=== PATIENT | male | born 1985 | race Caucasian/White ===

== ENCOUNTER 2017-10-07 10:58 | Emergency (ER) | payer OTHER ==
--- NOTE | 2017-10-07 11:09 | EDM.PDOC ---
ED HPI GENERAL MEDICAL PROBLEM - General Chief Complaint: Lower Extremity Injury/Pain Stated Complaint: LT ANKLE HURTS Time Seen by Provider: 10/07/17 11:01 Source of Information: Reports: Patient History Limitations: Reports: No Limitations - History of Present Illness INITIAL COMMENTS - FREE TEXT/NARRATIVE: HISTORY AND PHYSICAL: History of present illness: Patient is a 32-year-old male who presents to the emergency room today with complaints of left ankle/foot pain. He states yesterday he stepped in a hole and rolled his ankle and now has increased pain, swelling and discomfort with weightbearing/ambulating. He denies any numbness or tingling to the affected extremity. Denies any fever, chills, chest pain or shortness of breath. Denies any GI or symptoms. Review of systems: As per history of present illness and below otherwise all systems reviewed and negative. Past medical history: As per history of present illness and as reviewed below otherwise noncontributory. Surgical history: As per history of present illness and as reviewed below otherwise noncontributory. Social history: No reported history of drug or alcohol abuse. Family history: As per history of present illness and as reviewed below otherwise noncontributory. Physical exam: General: Well-developed and well-nourished 32-year-old male. Alert and oriented. Nontoxic appearing and in no acute distress. HEENT: Atraumatic, normocephalic, pupils equal and reactive bilaterally, negative for conjunctival pallor or scleral icterus, mucous membranes moist, throat clear, neck supple, nontender, trachea midline. No drooling or trismus noted. No meningeal signs Lungs: Clear to auscultation, breath sounds equal bilaterally, chest nontender. Heart: S1S2, regular rate and rhythm without overt murmur Abdomen: Soft, nondistended, nontender. Negative for masses or hepatosplenomegaly. Negative for costovertebral tenderness. Pelvis: Stable nontender. Genitourinary: Deferred. Rectal: Deferred. Skin: Superficial abrasion noted to the left lateral foot near the ankle. Otherwise skin is intact, warm, dry. No lesions or rashes noted. Extremities: Moves all extremities per self without difficulty or deficits. Does have tenderness to the left lateral mid foot with palpation. Good flexion and extension of the ankle. Strong pedal pulses bilaterally. CMS intact, negative for cords or calf pain. Neurovascular unremarkable. Neuro: Awake, alert, oriented. Cranial nerves II through XII unremarkable. Cerebellum unremarkable. Motor and sensory unremarkable throughout. Exam nonfocal. Notes: Radiology is reading as normal foot and ankle; does appear that there is a questionable hairline fracture which is correlated with tenderness with palpation. Placing the patient in a cam walker boot along with crutches. Prescription for Joes one to 2 tabs every 4-6 hours as needed, dispense 20, no refill. Encouraged him to follow-up with the automotive center manager in the next 1-2 days for further evaluation and management. He voices understanding and is agreeable to plan of care. He denies any further questions at this time. Diagnostics: Left foot and ankle x-ray Therapeutics: Ice, CAM walker boot, crutches, Joes Impression: Foot injury, left Plan: 1. Rest, ice, elevate the affected extremity. Use the CAM walker boot and crutches as we discussed. Non-weightbearing. 2. Tylenol and/or ibuprofen as needed for pain management. The Joes may cause drowsiness a do not take it will driving her needing to be functioning outside of the house. 3. Follow-up with the [facility] in the next 1-2 days. Return to the ED as needed and as discussed. Definitive disposition and diagnosis as appropriate pending reevaluation and review of above. Duration: Day(s): Location: Reports: Lower Extremity, Left left foot/ankle Pain Score (Numeric/FACES): 9 - Related Data Allergies Allergy/AdvReac Type Severity Reaction Status Date / Time No Known Allergies Allergy Verified 10/07/17 11:13 Home Meds: Home Meds . [No Known Home Meds] 10/07/17 [History] Review of Systems - Review of Systems Review Of Systems: ROS reveals no pertinent complaints other than HPI. ED EXAM, GENERAL - Physical Exam Exam: See Below Course - Vital Signs Last Recorded V/S: Last Vital Signs Temp 96.3 F 10/07/17 11:13 Pulse 95 10/07/17 11:50 Resp 18 10/07/17 11:50 BP 168/110 H 10/07/17 11:50 Pulse Ox 96 10/07/17 11:50 - Orders/Labs/Meds Orders: Active Orders 24 hr Category Date Time Status Ankle Min 3V Lt [CR] Stat Exams 10/07/17 11:00 Taken Foot 2V Lt [CR] Stat Exams 10/07/17 11:25 Ordered DME for Discharge [COMM] Stat Oth 10/07/17 11:35 Ordered Meds: Medications Discontinued Medications Generic Name Dose Route Start Last Admin Trade Name Rajani PRN Reason Stop Dose Admin Hydrocodone Bitart/Acetaminophen 2 tab 10/07/17 11:42 10/07/17 11:52 Joes 325-5 Mg PO 10/07/17 11:43 2 tab ONETIME ONE Administration Departure - Departure Time of Disposition: 11:45 Disposition: Home, Self-Care 01 Clinical Impression: Injury of left foot Qualifiers: Encounter type: initial encounter Qualified Code(s): S99.922A - Unspecified injury of left foot, initial encounter - Discharge Information Instructions: Tarsal Fracture Referrals: PCP,None [Primary Care Provider] - Forms: ED Department Discharge Additional Instructions: The following information is given to patients seen in the emergency department who are being discharged to home. This information is to outline your options for follow-up care. We provide all patients seen in our emergency department with a follow-up referral. The need for follow-up, as well as the timing and circumstances, are variable depending upon the specifics of your emergency department visit. If you don't have a primary care physician on staff, we will provide you with a referral. We always advise you to contact your personal physician following an emergency department visit to inform them of the circumstance of the visit and for follow-up with them and/or the need for any referrals to a consulting specialist. The emergency department will also refer you to a specialist when appropriate. This referral assures that you have the opportunity for follow-up care with a specialist. All of these measure are taken in an effort to provide you with optimal care, which includes your follow-up. Under all circumstances we always encourage you to contact your private physician who remains a resource for coordinating your care. When calling for follow-up care, please make the office aware that this follow-up is from your recent emergency room visit. If for any reason you are refused follow-up, please contact the [facility] Emergency Department at and asked to speak to the emergency department charge nurse. Dr Rodriguez [facility] [address] [place] [id number] 1. Rest, ice, elevate the affected extremity. Use the CAM walker boot and crutches as we discussed. Non-weightbearing. 2. Tylenol and/or ibuprofen as needed for pain management. The Joes may cause drowsiness a do not take it will driving her needing to be functioning outside of the house. 3. Follow-up with the [facility] in the next 1-2 days. Return to the ED as needed and as discussed. - My Orders Last 24 Hours: My Active Orders 10/07/17 11:25 Foot 2V Lt [CR] Stat 10/07/17 11:35 DME for Discharge [COMM] Stat - Assessment/Plan Last 24 Hours: My Active Orders 10/07/17 11:25 Foot 2V Lt [CR] Stat 10/07/17 11:35 DME for Discharge [COMM] Stat
[2017-10-07] MEDS ORDERED: Acetaminophen/HYDROcodone 325-5 MG Tab PO ONE (11:42)
--- NOTE | 2017-10-08 13:36 | CR ---
EXAM DATE: 10/07/17 PATIENT'S AGE: 32 Patient: AUDIE MANRIQUE Facility: [place], [place] Site . Site : 1985 Study: XRay Extremity Left ankle [id number]/3/2018 11:22:03 AM Ordering Physician: Doctor Funes Final Report: HISTORY: Fall, injury. TECHNIQUE: Three views of the left ankle. COMPARISON: No prior. FINDINGS: No acute fracture or malalignment. Ankle mortise appears maintained. Small spur involving the fibula appears chronic. Os peroneum is noted on the mortise view. No radiopaque foreign body or soft tissue gas. IMPRESSION: No acute fracture or malalignment. Dictated by Riccardo Santo MD @ 10/07/2017 11:28:25 AM Dictated by: Riccardo Santo MD @ 10/07/2017 11:28:30 (Electronic Signature) Report Signed by Proxy. NIKKI
--- NOTE | 2017-10-08 13:37 | CR ---
EXAM DATE: 10/07/17 PATIENT'S AGE: 32 Patient: AUDIE MANRIQUE Facility: [place], [place] Site . Site : 1985 Study: XRay Extremity Left foot [id number]/3/2018 11:37:33 AM Ordering Physician: Doctor Funes Final Report: INDICATION: Fell in a hole. FINDINGS: Two portable views of the left foot were obtained. There is no definite fracture seen or dislocation. IMPRESSION: No acute bone abnormality. Dictated by Luis Manuel Raines MD @ 10/07/2017 11:59:43 AM Dictated by: Luis Manuel Raines MD @ 10/07/2017 11:59:49 (Electronic Signature) Report Signed by Proxy. [facility] HOSPITALJonh
== END 2017-10-07 11:58 | disposition home or self-care (01) ==
LOC: MW.ED 10:58
DX: S90.812A Abrasion, left foot, initial encounter (principal); W22.8XXA Striking against or struck by other objects, initial encounter
CPT/HCPCS: 73610; 73620; 99283; A9270

== ENCOUNTER 2017-10-09 11:46 | Emergency (ER) | payer SELFPAY ==
--- NOTE | 2017-10-09 12:39 | EDM.PDOC ---
ED HPI GENERAL MEDICAL PROBLEM - General Chief Complaint: Medication Administration Stated Complaint: LT ANKLE PAIN Time Seen by Provider: 10/09/17 12:17 Source of Information: Reports: Patient History Limitations: Reports: No Limitations - History of Present Illness INITIAL COMMENTS - FREE TEXT/NARRATIVE: Presents to the ER reporting he needs pain medication. He has a fracture of his left foot and cannot get into podiatry until the 12th. 2 days ago he was prescribed 20 Denver 5/325. They're all gone as he has been taking 2 every 4 hours. He states that he always takes ibuprofen for his back but he has not taken any Tylenol. He has been wearing his boot and using his crutches. He was told by podiatry to come to the ER to get Pain medicine. left ankle Pain Score (Numeric/FACES): 8 - Related Data Allergies Allergy/AdvReac Type Severity Reaction Status Date / Time No Known Allergies Allergy Verified 10/09/17 11:57 Home Meds: Home Meds Acetaminophen/HYDROcodone [Denver 325-5 MG] 2 tab PO Q4H PRN 10/09/17 [History] Past Medical History - Past Health History Medical/Surgical History: Denies Medical/Surgical History - Infectious Disease History Infectious Disease History: Reports: None Social & Family History - Family History Family Medical History: Noncontributory - Tobacco Use Smoking Status *Q: Current Every Day Smoker Years of Tobacco use: 16 Packs/Tins Daily: 1 Second Hand Smoke Exposure: No - Caffeine Use Caffeine Use: Reports: None - Recreational Drug Use Recreational Drug Use: No ED ROS GENERAL - Review of Systems Review Of Systems: ROS reveals no pertinent complaints other than HPI. ED EXAM, GENERAL - Physical Exam Exam: See Below Exam Limited By: No Limitations General Appearance: Alert, No Apparent Distress Ears: Normal External Exam Nose: Normal Inspection Throat/Mouth: Normal Inspection Head: Atraumatic, Normocephalic Neck: Normal Inspection Respiratory/Chest: No Respiratory Distress Cardiovascular: Normal Peripheral Pulses Extremities: Other (Left dorsal foot swollen but CMS intact distally) Neurological: Alert, Oriented, Normal Cognition Psychiatric: Normal Affect, Normal Mood Skin Exam: Warm, Dry, Intact, Normal Color, No Rash Lymphatic: No Adenopathy Course - Vital Signs Last Recorded V/S: Last Vital Signs Temp 36.9 C 10/09/17 11:58 Pulse 109 H 10/09/17 11:58 Resp 16 10/09/17 11:58 BP 165/109 H 10/09/17 11:58 Pulse Ox 96 10/09/17 11:58 Departure - Departure Time of Disposition: 12:39 Disposition: Home, Self-Care 01 Condition: Good Clinical Impression: Foot fracture Qualifiers: Encounter type: subsequent encounter Fracture type: closed Laterality: left Fracture healing: with routine healing Qualified Code(s): S92.902D - Unspecified fracture of left foot, subsequent encounter for fracture with routine healing - Discharge Information Referrals: PCP,None [Primary Care Provider] - Additional Instructions: 1. Please add Tylenol 500mg two tabs three times daily to the Denver 2hich you may take 3 times daily as needed. 2. Follow up in podiatry as previously scheduled.
== END 2017-10-09 12:50 | disposition home or self-care (01) ==
LOC: MW.ED 11:46
DX: S92.902D Unspecified fracture of left foot, subsequent encounter for fracture with routine healing (principal); F17.210 Nicotine dependence, cigarettes, uncomplicated; X58.XXXD Exposure to other specified factors, subsequent encounter
CPT/HCPCS: 99281

== ENCOUNTER 2017-10-31 23:36 | Emergency (ER) | payer SELFPAY ==
[2017-10-31] MEDS ORDERED: Ondansetron 4 MG/2 ML SDV IVPUSH ONE (23:48)
[2017-10-31] MEDS ORDERED: Sodium Chloride 0.9% 1,000 ML IV ONE (23:48)
[2017-10-31] MEDS ORDERED: Pantoprazole 40 MG Vial IVPUSH ONE (23:49)
[2017-10-31] MEDS ORDERED: Sodium Chloride 0.9% 2.5 ML Syringe FLUSH PRN (23:49)
[2017-10-31] MEDS ORDERED: Sodium Chloride 0.9% 10 ML Syringe FLUSH PRN (23:49)
[2017-10-31] MEDS ORDERED: Ketorolac 30 MG/ML SDV IVPUSH ONE (23:49)
--- NOTE | 2017-10-31 23:52 | EDM.PDOC ---
ED HPI GENERAL MEDICAL PROBLEM - General Chief Complaint: Abdominal Pain Stated Complaint: ABDOMINAL PAIN, CAN'T KEEP FOOD DOWN Time Seen by Provider: 10/31/17 23:45 - History of Present Illness INITIAL COMMENTS - FREE TEXT/NARRATIVE: HISTORY AND PHYSICAL: History of present illness: The patient is a healthy 32-year-old male who presents with onset of upper abdominal pain nausea and vomiting and loose stools over the last 12-24 hours. Patient's family member at bedside had similar symptoms but improved yesterday after 2 days. This patient has presented with another family member with similar symptoms. They all ate the same food and were out of the legs together. The patient has no GI history or abdominal surgical history and states that the pain is in the upper abdomen and everything he eats is coming up. He does not have diarrhea but his stools are very loose. He tried to work with this at home starting yesterday but it got worse today and he is here for evaluation. Review of systems: As per history of present illness and below otherwise all systems reviewed and negative. Past medical history: As per history of present illness and as reviewed below otherwise noncontributory. Surgical history: As per history of present illness and as reviewed below otherwise noncontributory. Social history: No reported history of drug or alcohol abuse. Family history: As per history of present illness and as reviewed below otherwise noncontributory. Physical exam: General: Well-developed well-nourished overweight man who is nontoxic and vital signs are noted by me HEENT: Atraumatic, normocephalic, negative for conjunctival pallor or scleral icterus, mucous membranes tacky, throat clear, neck supple, nontender, trachea midline. Lungs: Clear to auscultation, breath sounds equal bilaterally, chest nontender. Heart: S1S2, regular in rhythm no overt murmurs Abdomen: Soft, nondistended, bowel sounds are slightly hypoactive and there is tenderness in the epigastric area without rebound or guarding. There is no tympany on percussion. Negative for masses or hepatosplenomegaly. Negative for costovertebral tenderness. Pelvis: Stable nontender. Genitourinary: Deferred. Rectal: Deferred. Extremities: Atraumatic, negative for cords or calf pain. Neurovascular unremarkable. Neuro: Awake, alert, oriented. Cranial nerves II through XII unremarkable. Cerebellum unremarkable. Motor and sensory unremarkable throughout. Exam nonfocal. Diagnostics: CBC CMP amylase lipase UA urine culture Therapeutics: IV fluids Zofran and Protonix Toradol The patient is feeling much improved and is currently eating a popsicle. I've advised him on eating bland diet and pushing hydration and will give him Zofran for home. Impression: Abdominal pain with nausea vomiting and early diarrhea Definitive disposition and diagnosis as appropriate pending reevaluation and review of above. Abdomen Pain Score (Numeric/FACES): 7 - Related Data Allergies Allergy/AdvReac Type Severity Reaction Status Date / Time No Known Allergies Allergy Verified 10/31/17 23:48 Home Meds: Home Meds Acetaminophen/HYDROcodone [[place] 325-5 MG] 2 tab PO Q4H PRN 10/09/17 [History] Past Medical History - Past Health History Medical/Surgical History: Denies Medical/Surgical History - Infectious Disease History Infectious Disease History: Reports: None Social & Family History - Family History Family Medical History: Noncontributory - Caffeine Use Caffeine Use: Reports: None ED ROS GENERAL - Review of Systems Review Of Systems: ROS reveals no pertinent complaints other than HPI. ED EXAM, GENERAL - Physical Exam Exam: See Below (See dictation) Course - Vital Signs Last Recorded V/S: Last Vital Signs Temp 36.4 C 10/31/17 23:48 Pulse 106 H 10/31/17 23:48 Resp 18 10/31/17 23:48 BP 164/103 H 10/31/17 23:48 Pulse Ox 98 10/31/17 23:48 - Orders/Labs/Meds Orders: Active Orders 24 hr Category Date Time Status CULTURE URINE [RM] Stat Lab 11/01/17 00:25 Received UA W/MICROSCOPIC [URIN] Stat Lab 11/01/17 00:55 Ordered Sodium Chloride 0.9% [Saline Flush] Med 10/31/17 23:49 Active 10 ml FLUSH ASDIRECTED PRN Sodium Chloride 0.9% [Saline Flush] Med 10/31/17 23:49 Active 2.5 ml FLUSH ASDIRECTED PRN Saline Lock Insert [OM.PC] Stat Oth 10/31/17 23:48 Ordered Medication Orders Sodium Chloride (Saline Flush) 10 ml FLUSH ASDIRECTED PRN PRN Reason: Keep Vein Open Last Admin: 11/01/17 00:14 Dose: 10 ml Sodium Chloride (Saline Flush) 2.5 ml FLUSH ASDIRECTED PRN PRN Reason: Keep Vein Open Last Admin: 11/01/17 00:14 Dose: 2.5 ml Labs: Laboratory Tests 10/31/17 10/31/17 10/31/17 Range/Units 00:05 00:05 00:05 WBC 8.81 (4.0-11.0) K/uL RBC 4.50 (4.50-5.90) M/uL Hgb 15.8 (13.0-17.0) g/dL Hct 45.3 (38.0-50.0) % MCV 100.7 H (80.0-98.0) fL MCH 35.1 H (27.0-32.0) pg MCHC 34.9 (31.0-37.0) g/dL RDW Std Deviation 47.7 (28.0-62.0) fl RDW Coeff of Peter 13 (11.0-15.0) % Plt Count 161 (150-400) K/uL MPV 10.90 (7.40-12.00) fL Neut % (Auto) 58.0 (48.0-80.0) % Lymph % (Auto) 29.5 (16.0-40.0) % Caroline % (Auto) 9.3 (0.0-15.0) % Eos % (Auto) 2.6 (0.0-7.0) % Baso % (Auto) 0.6 (0.0-1.5) % Neut # (Auto) 5.1 (1.4-5.7) K/uL Lymph # (Auto) 2.6 H (0.6-2.4) K/uL Caroline # (Auto) 0.8 (0.0-0.8) K/uL Eos # (Auto) 0.2 (0.0-0.7) K/uL Baso # (Auto) 0.1 (0.0-0.1) K/uL Sodium 143 (136-148) mmol/L Potassium 3.6 (3.5-5.1) mmol/L Chloride 105 (98-107) mmol/L Carbon Dioxide 29.4 (21.0-32.0) mmol/L BUN 9 (7.0-18.0) mg/dL Creatinine 1.1 (0.8-1.3) mg/dL Est Cr Clr Drug Dosing 116.17 mL/min Estimated GFR (MDRD) > 60.0 ml/min Glucose 104 (74-106) mg/dL Calcium 9.1 (8.5-10.1) mg/dL Total Bilirubin 0.3 (0.2-1.0) mg/dL AST 39 H (15-37) IU/L ALT 69 H (14-63) IU/L Alkaline Phosphatase 56 (46-116) U/L Total Protein 7.6 (6.4-8.2) g/dL Albumin 4.2 (3.4-5.0) g/dL Globulin 3.4 (2.0-3.5) g/dL Albumin/Globulin Ratio 1.2 L (1.3-2.8) Amylase 16 L (25-115) U/L Lipase 94 (73-393) U/L Urine Color Cancelled Urine Appearance Cancelled Urine pH Cancelled Ur Specific Hope Cancelled Urine Protein Cancelled Urine Glucose (UA) Cancelled Urine Ketones Cancelled Urine Occult Blood Cancelled Urine Nitrite Cancelled Urine Bilirubin Cancelled Urine Ictotest Cancelled Urine Urobilinogen Cancelled Ur Leukocyte Esterase Cancelled Urine RBC Cancelled Urine WBC Cancelled Ur Epithelial Cells Cancelled Ur Squamous Epith Cells Cancelled Ur Renal Epithelial Cell Cancelled Calcium Oxalate Crystal Cancelled Uric Acid Crystals Cancelled Triple Phos Crystals Cancelled Other Crystals Cancelled Amorphous Sediment Cancelled Urine Bacteria Cancelled Hyaline Casts Cancelled Fine Granular Casts Cancelled Coarse Granular Casts Cancelled Waxy Casts Cancelled RBC Casts Cancelled WBC Casts Cancelled Urine Mucus Cancelled Urine Other Cancelled Urine Trichomonas Cancelled Urine Yeast Cancelled Urine Sperm Cancelled Ur Oval Fat Bodies Cancelled Urinalysis Comment Cancelled 11/01/17 Range/Units 00:55 WBC (4.0-11.0) K/uL RBC (4.50-5.90) M/uL Hgb (13.0-17.0) g/dL Hct (38.0-50.0) % MCV (80.0-98.0) fL MCH (27.0-32.0) pg MCHC (31.0-37.0) g/dL RDW Std Deviation (28.0-62.0) fl RDW Coeff of Peter (11.0-15.0) % Plt Count (150-400) K/uL MPV (7.40-12.00) fL Neut % (Auto) (48.0-80.0) % Lymph % (Auto) (16.0-40.0) % Caroline % (Auto) (0.0-15.0) % Eos % (Auto) (0.0-7.0) % Baso % (Auto) (0.0-1.5) % Neut # (Auto) (1.4-5.7) K/uL Lymph # (Auto) (0.6-2.4) K/uL Caroline # (Auto) (0.0-0.8) K/uL Eos # (Auto) (0.0-0.7) K/uL Baso # (Auto) (0.0-0.1) K/uL Sodium (136-148) mmol/L Potassium (3.5-5.1) mmol/L Chloride (98-107) mmol/L Carbon Dioxide (21.0-32.0) mmol/L BUN (7.0-18.0) mg/dL Creatinine (0.8-1.3) mg/dL Est Cr Clr Drug Dosing mL/min Estimated GFR (MDRD) ml/min Glucose (74-106) mg/dL Calcium (8.5-10.1) mg/dL Total Bilirubin (0.2-1.0) mg/dL AST (15-37) IU/L ALT (14-63) IU/L Alkaline Phosphatase (46-116) U/L Total Protein (6.4-8.2) g/dL Albumin (3.4-5.0) g/dL Globulin (2.0-3.5) g/dL Albumin/Globulin Ratio (1.3-2.8) Amylase (25-115) U/L Lipase (73-393) U/L Urine Color YELLOW Urine Appearance CLOUDY Urine pH 8.5 H Ur Specific Hope 1.015 Urine Protein NEGATIVE Urine Glucose (UA) NEGATIVE Urine Ketones NEGATIVE Urine Occult Blood NEGATIVE Urine Nitrite NEGATIVE Urine Bilirubin NEGATIVE Urine Ictotest Urine Urobilinogen 0.2 Ur Leukocyte Esterase NEGATIVE Urine RBC 0-2 Urine WBC RARE Ur Epithelial Cells OCCASIONAL Ur Squamous Epith Cells Ur Renal Epithelial Cell Calcium Oxalate Crystal Uric Acid Crystals Triple Phos Crystals Other Crystals Amorphous Sediment MODERATE Urine Bacteria FEW Hyaline Casts Fine Granular Casts Coarse Granular Casts Waxy Casts RBC Casts WBC Casts Urine Mucus Urine Other Urine Trichomonas Urine Yeast Urine Sperm Ur Oval Fat Bodies Urinalysis Comment Meds: Medications Generic Name Dose Route Start Last Admin Trade Name Congq PRN Reason Stop Dose Admin Sodium Chloride 10 ml 10/31/17 23:49 11/01/17 00:14 Saline Flush FLUSH 10 ml ASDIRECTED PRN Administration Keep Vein Open Sodium Chloride 2.5 ml 10/31/17 23:49 11/01/17 00:14 Saline Flush FLUSH 2.5 ml ASDIRECTED PRN Administration Keep Vein Open Discontinued Medications Generic Name Dose Route Start Last Admin Trade Name Freq PRN Reason Stop Dose Admin Sodium Chloride 1,000 mls @ 999 mls/hr 10/31/17 23:48 11/01/17 00:13 Normal Saline IV 11/01/17 00:48 999 mls/hr STAT ONE Administration Ketorolac Tromethamine 30 mg 10/31/17 23:49 11/01/17 00:14 Toradol IVPUSH 10/31/17 23:50 30 mg ONETIME ONE Administration Ondansetron HCl 4 mg 10/31/17 23:48 11/01/17 00:13 Zofran IVPUSH 10/31/17 23:49 4 mg ONETIME ONE Administration Pantoprazole Sodium 40 mg 10/31/17 23:49 11/01/17 00:14 Protonix Iv IVPUSH 10/31/17 23:50 40 mg NOW ONE Administration Departure - Departure Time of Disposition: 01:16 Disposition: Home, Self-Care 01 Condition: Good Clinical Impression: Abdominal pain Qualifiers: Abdominal location: upper abdomen, unspecified Qualified Code(s): R10.10 - Upper abdominal pain, unspecified Vomiting Qualifiers: Vomiting type: unspecified Vomiting Intractability: non-intractable Nausea presence: with nausea Qualified Code(s): R11.2 - Nausea with vomiting, unspecified - Discharge Information Referrals: PCP,None [Primary Care Provider] - Forms: ED Department Discharge Additional Instructions: The following information is given to patients seen in the emergency department who are being discharged to home. This information is to outline your options for follow-up care. We provide all patients seen in our emergency department with a follow-up referral. The need for follow-up, as well as the timing and circumstances, are variable depending upon the specifics of your emergency department visit. If you don't have a primary care physician on staff, we will provide you with a referral. We always advise you to contact your personal physician following an emergency department visit to inform them of the circumstance of the visit and for follow-up with them and/or the need for any referrals to a consulting specialist. The emergency department will also refer you to a specialist when appropriate. This referral assures that you have the opportunity for followup care with a specialist. All of these measure are taken in an effort to provide you with optimal care, which includes your followup. Under all circumstances we always encourage you to contact your private physician who remains a resource for coordinating your care. When calling for followup care, please make the office aware that this follow-up is from your recent emergency room visit. If for any reason you are refused follow-up, please contact the [facility] emergency department at and ask to speak to the emergency department charge nurse. [facility] Primary care- [place] [address] Push hydration was sips of Gatorade and water and clear liquids and eat bites of bland food. Use Zofran you have been prescribed for nausea and vomiting and use any [id number] antidiarrheal medication that he would like and as needed. Please call and follow-up in our clinic with one of our providers or with your clinic provider in the next few days and return to ER as needed and as discussed. - My Orders Last 24 Hours: My Active Orders 10/31/17 23:48 Saline Lock Insert [OM.PC] Stat 10/31/17 23:49 Sodium Chloride 0.9% [Saline Flush] 10 ml FLUSH ASDIRECTED PRN Sodium Chloride 0.9% [Saline Flush] 2.5 ml FLUSH ASDIRECTED PRN 11/01/17 00:25 CULTURE URINE [RM] Stat 11/01/17 00:55 UA W/MICROSCOPIC [URIN] Stat - Assessment/Plan Last 24 Hours: My Active Orders 10/31/17 23:48 Saline Lock Insert [OM.PC] Stat 10/31/17 23:49 Sodium Chloride 0.9% [Saline Flush] 10 ml FLUSH ASDIRECTED PRN Sodium Chloride 0.9% [Saline Flush] 2.5 ml FLUSH ASDIRECTED PRN 11/01/17 00:25 CULTURE URINE [RM] Stat 11/01/17 00:55 UA W/MICROSCOPIC [URIN] Stat
[2017-11-01 00:47] LABS: CHLORIDE,CL 105 mmol/L (98-107); SODIUM,NA 143 mmol/L (136-148)
== END 2017-11-01 02:12 | disposition home or self-care (01) ==
LOC: MW.ED 23:36
DX: R10.10 Upper abdominal pain, unspecified (principal); R11.2 Nausea with vomiting, unspecified; R19.7 Diarrhea, unspecified
CPT/HCPCS: 36415; 80053; 81001; 82150; 83690; 85025; 87086; 96361; 96374; 96375; 99284; C9113; J1885; J2405; J7040; 99283

== ENCOUNTER 2018-12-23 14:16 | Emergency (ER) | payer SELFPAY ==
[2018-12-23] MEDS ORDERED: Ondansetron 4 MG/2 ML SDV IVPUSH ONE (14:35)
[2018-12-23] MEDS ORDERED: Sodium Chloride 0.9% 1,000 ML IV ONE (14:46)
[2018-12-23 15:28] LABS: CHLORIDE,CL 105 mmol/L (98-107); SODIUM,NA 142 mmol/L (136-148)
[2018-12-23] MEDS ORDERED: Pantoprazole 40 MG Vial IVPUSH ONE (16:15)
--- NOTE | 2018-12-23 16:18 | EDM.PDOC ---
ED HPI GENERAL MEDICAL PROBLEM - General Chief Complaint: Gastrointestinal Problem Stated Complaint: BACK PAIN Time Seen by Provider: 12/23/18 14:30 Source of Information: Reports: Patient History Limitations: Reports: No Limitations - History of Present Illness INITIAL COMMENTS - FREE TEXT/NARRATIVE: HISTORY AND PHYSICAL: History of present illness: Patient is a 33-year-old male presents to the ED today with concern of left sided flank pain 4 days. Patient states over the past 2 weeks he has been taking "random pills from [place] ". Patient states he does have issues with drugs in the past and had a "relapse ". Patient states he believes there were some opioid medications with the pills but he is not sure of all what he took. Patient states 4 days ago he stopped taking this medication since then has been having left-sided flank/abdominal pain. Patient states he also is a daily alcohol user but does not get withdrawals if he does not drink. Patient states he has not drank anything today and has not taken any other substances today. Patient rates his pain a 10 out of 10. Patient does express some nausea but states he has not vomited. Patient states he also has had some dark stools but also has been drinking "bottles of Pepto-Bismol " Patient denies any other health history. Patient denies fever, chills, chest pain, shortness of breath, or cough. Denies headache, neck stiff ness, change in vision, syncope, or near syncope. Denies vomiting, diarrhea, constipation, or dysuria. Has not noted any blood in urine. Patient has been eating and drinking appropriately. Review of systems: As per history of present illness and below otherwise all systems reviewed and negative. Past medical history: As per history of present illness and as reviewed below otherwise noncontributory. Surgical history: As per history of present illness and as reviewed below otherwise noncontributory. Social history: See social history for further information Family history: As per history of present illness and as reviewed below otherwise noncontributory. Physical exam: General: Patient is alert, oriented, and in no acute distress. Patient sitting comfortably on exam table. HEENT: Atraumatic, normocephalic, pupils equal and reactive bilaterally, negative for conjunctival pallor or scleral icterus, mucous membranes moist, TMs normal bilaterally, throat clear, neck supple, nontender, trachea midline. No drooling or trismus noted. No meningeal signs. No hot potato voice noted. Lungs: Clear to auscultation, breath sounds equal bilaterally, chest nontender. Heart: S1S2, regular rate and rhythm without overt murmur Abdomen: Soft, nondistended. Moderate pain to palpation of patient's left side of abdomen without guarding or rebound. Negative for masses or hepatosplenomegaly. Negative for costovertebral tenderness. Pelvis: Stable nontender. Genitourinary: Deferred. Rectal: Rectal tone intact. No obvious lesions, masses, or hemorrhoids. Hemoccult negative Skin: Intact, warm, dry. No lesions or rashes noted. Extremities: Atraumatic, negative for cords or calf pain. Neurovascular unremarkable. Neuro: Awake, alert, oriented. Cranial nerves II through XII unremarkable. Cerebellum unremarkable. Motor and sensory unremarkable throughout. Exam nonfocal. Notes: Dr. Ryan directly involved in patient care. Hemoccult negative. Discussed all diagnostics with patient and importance for follow up with general surgery and primary care. Admission for observation was offered to patient but he declines at this time. Discussed the importance for follow-up with Gen. surgery. Voices understanding and is agreeable to plan of care. Denies any further questions or concerns at this time. Diagnostics: Hemoccult, CBC, CMP, UA, EKG, troponin, chest x-ray, lipase, urine drug screen, abdominal pelvic CT Therapeutics: Protonix, NS, zofran, Bentyl, Toradol Prescription: Bentyl Impression: Left sided abdominal pain, unspecified Plan: 1. You can alternate ibuprofen and Tylenol as directed for pain and discomfort. 2. Follow-up with the general surgeon as discussed. Call the number to set up an appointment which has been provided above for you. 3. Return to the ED as needed and as discussed. Follow up with your primary care provider as discussed. Definitive disposition and diagnosis as appropriate pending reevaluation and review of above. Left Flank Pain Score (Numeric/FACES): 10 - Related Data Allergies Allergy/AdvReac Type Severity Reaction Status Date / Time No Known Allergies Allergy Verified 12/23/18 14:29 Home Meds: Home Meds Dicyclomine HCl [Bentyl] 10 mg PO BID PRN #8 capsule 12/23/18 [Rx] Past Medical History - Past Health History Medical/Surgical History: Denies Medical/Surgical History HEENT History: Reports: None Cardiovascular History: Reports: None Respiratory History: Reports: None Gastrointestinal History: Reports: None Genitourinary History: Reports: None Musculoskeletal History: Reports: None Neurological History: Reports: None Psychiatric History: Reports: None Endocrine/Metabolic History: Reports: None Hematologic History: Reports: None Immunologic History: Reports: None Oncologic (Cancer) History: Reports: None Dermatologic History: Reports: None - Infectious Disease History Infectious Disease History: Reports: Chicken Pox - Past Surgical History Head Surgeries/Procedures: Reports: None HEENT Surgical History: Reports: Adenoidectomy, Tonsillectomy, Other (See Below) Other HEENT Surgeries/Procedures: throat surgery Social & Family History - Family History Family Medical History: Noncontributory - Tobacco Use Smoking Status *Q: Current Every Day Smoker Years of Tobacco use: 20 Packs/Tins Daily: 0.5 - Caffeine Use Caffeine Use: Reports: Coffee, Energy Drinks, Soda, Tea - Recreational Drug Use Recreational Drug Type: Reports: Marijuana/Hashish, Other (see below) Other Recreational Drug Type: States took pills from [place] within the last week. Taken suboxone in the last week, not patient's Rx. ED ROS GENERAL - Review of Systems Review Of Systems: ROS reveals no pertinent complaints other than HPI. ED EXAM, GENERAL - Physical Exam Exam: See Below (see dictation) Course - Vital Signs Last Recorded V/S: Last Vital Signs Temp 36.2 C 12/23/18 16:15 Pulse 82 12/23/18 16:15 Resp 15 12/23/18 16:15 BP 198/120 H 12/23/18 16:15 Pulse Ox 96 12/23/18 16:15 - Orders/Labs/Meds Orders: Active Orders 24 hr Category Date Time Status EKG Documentation Completion [RC] STAT Care 12/23/18 14:48 Active Hemoccult [Fecal Occult Blood Collection] [RC] Care 12/23/18 14:36 Active ASDIRECTED Chest 1V Frontal [CR] Stat Exams 12/23/18 14:48 Taken CULTURE URINE [RM] Stat Lab 12/23/18 14:55 Received Labs: Laboratory Tests 12/23/18 12/23/18 12/23/18 Range/Units 14:49 14:49 14:49 WBC 7.00 (4.0-11.0) K/uL RBC 4.99 (4.50-5.90) M/uL Hgb 16.7 (13.0-17.0) g/dL Hct 47.3 (38.0-50.0) % MCV 94.8 (80.0-98.0) fL MCH 33.5 H (27.0-32.0) pg MCHC 35.3 (31.0-37.0) g/dL RDW Std Deviation 45.1 (28.0-62.0) fl RDW Coeff of Peter 13 (11.0-15.0) % Plt Count 196 (150-400) K/uL MPV 11.00 (7.40-12.00) fL Neut % (Auto) 58.0 (48.0-80.0) % Lymph % (Auto) 31.4 (16.0-40.0) % Summers % (Auto) 8.1 (0.0-15.0) % Eos % (Auto) 1.9 (0.0-7.0) % Baso % (Auto) 0.6 (0.0-1.5) % Neut # (Auto) 4.1 (1.4-5.7) K/uL Lymph # (Auto) 2.2 (0.6-2.4) K/uL Summers # (Auto) 0.6 (0.0-0.8) K/uL Eos # (Auto) 0.1 (0.0-0.7) K/uL Baso # (Auto) 0.0 (0.0-0.1) K/uL Nucleated RBC % 0.0 /100WBC Nucleated RBCs # 0 K/uL Sodium 142 (136-148) mmol/L Potassium 3.4 L (3.5-5.1) mmol/L Chloride 105 (98-107) mmol/L Carbon Dioxide 24.3 (21.0-32.0) mmol/L BUN 6 L (7.0-18.0) mg/dL Creatinine 0.8 (0.8-1.3) mg/dL Est Cr Clr Drug Dosing 158.23 mL/min Estimated GFR (MDRD) > 60.0 ml/min Glucose 130 H (74-106) mg/dL Calcium 9.7 (8.5-10.1) mg/dL Total Bilirubin 0.4 (0.2-1.0) mg/dL AST 22 (15-37) IU/L ALT 40 (14-63) IU/L Alkaline Phosphatase 67 (46-116) U/L Troponin I < 0.050 (0.000-0.056) ng/mL Total Protein 7.6 (6.4-8.2) g/dL Albumin 4.1 (3.4-5.0) g/dL Globulin 3.5 (2.6-4.0) g/dL Albumin/Globulin Ratio 1.2 (0.9-1.6) Lipase 92 (73-393) U/L Urine Color Urine Appearance Urine pH (5.0-8.0) Ur Specific [place] (1.001-1.035) Urine Protein (NEGATIVE) mg/dL Urine Glucose (UA) (NEGATIVE) mg/dL Urine Ketones (NEGATIVE) mg/dL Urine Occult Blood (NEGATIVE) Urine Nitrite (NEGATIVE) Urine Bilirubin (NEGATIVE) Urine Urobilinogen (<2.0) EU/dL Ur Leukocyte Esterase (NEGATIVE) Urine RBC (0-2/HPF) Urine WBC (0-5/HPF) Ur Epithelial Cells (NONE-FEW) Urine Bacteria (NEGATIVE) Urine Mucus (NONE-MOD) Urine Opiates Screen (NEGATIVE) Ur Oxycodone Screen (NEGATIVE) Urine Methadone Screen (NEGATIVE) Ur Barbiturates Screen (NEGATIVE) Ur Phencyclidine Scrn (NEGATIVE) Ur Amphetamine Screen (NEGATIVE) U Methamphetamines Scrn (NEGATIVE) U Benzodiazepines Scrn (NEGATIVE) U Cocaine Metab Screen (NEGATIVE) U Marijuana (THC) Screen (NEGATIVE) 12/23/18 12/23/18 Range/Units 14:55 14:55 WBC (4.0-11.0) K/uL RBC (4.50-5.90) M/uL Hgb (13.0-17.0) g/dL Hct (38.0-50.0) % MCV (80.0-98.0) fL MCH (27.0-32.0) pg MCHC (31.0-37.0) g/dL RDW Std Deviation (28.0-62.0) fl RDW Coeff of Peter (11.0-15.0) % Plt Count (150-400) K/uL MPV (7.40-12.00) fL Neut % (Auto) (48.0-80.0) % Lymph % (Auto) (16.0-40.0) % Summers % (Auto) (0.0-15.0) % Eos % (Auto) (0.0-7.0) % Baso % (Auto) (0.0-1.5) % Neut # (Auto) (1.4-5.7) K/uL Lymph # (Auto) (0.6-2.4) K/uL Summers # (Auto) (0.0-0.8) K/uL Eos # (Auto) (0.0-0.7) K/uL Baso # (Auto) (0.0-0.1) K/uL Nucleated RBC % /100WBC Nucleated RBCs # K/uL Sodium (136-148) mmol/L Potassium (3.5-5.1) mmol/L Chloride (98-107) mmol/L Carbon Dioxide (21.0-32.0) mmol/L BUN (7.0-18.0) mg/dL Creatinine (0.8-1.3) mg/dL Est Cr Clr Drug Dosing mL/min Estimated GFR (MDRD) ml/min Glucose (74-106) mg/dL Calcium (8.5-10.1) mg/dL Total Bilirubin (0.2-1.0) mg/dL AST (15-37) IU/L ALT (14-63) IU/L Alkaline Phosphatase (46-116) U/L Troponin I (0.000-0.056) ng/mL Total Protein (6.4-8.2) g/dL Albumin (3.4-5.0) g/dL Globulin (2.6-4.0) g/dL Albumin/Globulin Ratio (0.9-1.6) Lipase (73-393) U/L Urine Color YELLOW Urine Appearance CLEAR Urine pH 7.0 (5.0-8.0) Ur Specific [place] 1.020 (1.001-1.035) Urine Protein NEGATIVE (NEGATIVE) mg/dL Urine Glucose (UA) NEGATIVE (NEGATIVE) mg/dL Urine Ketones NEGATIVE (NEGATIVE) mg/dL Urine Occult Blood NEGATIVE (NEGATIVE) Urine Nitrite NEGATIVE (NEGATIVE) Urine Bilirubin NEGATIVE (NEGATIVE) Urine Urobilinogen 0.2 (<2.0) EU/dL Ur Leukocyte Esterase TRACE H (NEGATIVE) Urine RBC 0-2 (0-2/HPF) Urine WBC 3-5 (0-5/HPF) Ur Epithelial Cells OCCASIONAL (NONE-FEW) Urine Bacteria RARE (NEGATIVE) Urine Mucus LIGHT (NONE-MOD) Urine Opiates Screen NEGATIVE (NEGATIVE) Ur Oxycodone Screen NEGATIVE (NEGATIVE) Urine Methadone Screen NEGATIVE (NEGATIVE) Ur Barbiturates Screen NEGATIVE (NEGATIVE) Ur Phencyclidine Scrn NEGATIVE (NEGATIVE) Ur Amphetamine Screen NEGATIVE (NEGATIVE) U Methamphetamines Scrn NEGATIVE (NEGATIVE) U Benzodiazepines Scrn NEGATIVE (NEGATIVE) U Cocaine Metab Screen NEGATIVE (NEGATIVE) U Marijuana (THC) Screen POSITIVE (NEGATIVE) Meds: Medications Discontinued Medications Generic Name Dose Route Start Last Admin Trade Name Freq PRN Reason Stop Dose Admin Dicyclomine HCl 10 mg 12/23/18 17:12 Bentyl PO 12/23/18 17:13 ONETIME ONE Sodium Chloride 1,000 mls @ 999 mls/hr 12/23/18 14:46 12/23/18 14:55 Normal Saline IV 12/23/18 15:46 999 mls/hr STAT ONE Administration Sodium Chloride Confirm 12/23/18 16:25 12/23/18 16:30 Normal Saline Administered 12/23/18 16:26 Not Given Dose 20 mls @ as directed .ROUTE .STK-MED ONE Iopamidol 100 ml 12/23/18 16:59 12/23/18 17:00 Isovue Multipack-370 (76%) IVPUSH 12/23/18 17:00 100 ml ONETIME STA Administration Ketorolac Tromethamine 30 mg 12/23/18 17:12 Toradol IVPUSH 12/23/18 17:13 ONETIME ONE Ondansetron HCl 4 mg 12/23/18 14:35 12/23/18 14:55 Zofran IVPUSH 12/23/18 14:36 4 mg ONETIME ONE Administration Pantoprazole Sodium 80 mg 12/23/18 16:15 12/23/18 16:34 Protonix Iv IVPUSH 12/23/18 16:16 80 mg .BOLUS ONE Administration Departure - Departure Time of Disposition: 17:21 Disposition: Home, Self-Care 01 Clinical Impression: Left sided abdominal pain - Discharge Information Prescriptions: Dicyclomine HCl [Bentyl] 10 mg PO BID PRN #8 capsule PRN Reason: Pain Referrals: PCP,Unknown [Primary Care Provider] - Forms: ED Department Discharge Additional Instructions: The following information is given to patients seen in the emergency department who are being discharged to home. This information is to outline your options for follow-up care. We provide all patients seen in our emergency department with a follow-up referral. The need for follow-up, as well as the timing and circumstances, are variable depending upon the specifics of your emergency department visit. If you don't have a primary care physician on staff, we will provide you with a referral. We always advise you to contact your personal physician following an emergency department visit to inform them of the circumstance of the visit and for follow-up with them and/or the need for any referrals to a consulting specialist. The emergency department will also refer you to a specialist when appropriate. This referral assures that you have the opportunity for follow-up care with a specialist. All of these measure are taken in an effort to provide you with optimal care, which includes your follow-up. Under all circumstances we always encourage you to contact your private physician who remains a resource for coordinating your care. When calling for follow-up care, please make the office aware that this follow-up is from your recent emergency room visit. If for any reason you are refused follow-up, please contact the [facility] Emergency Department at and asked to speak to the emergency department charge nurse. [facility] [address] [place] [id number] [id number] [facility] - [facility] Professional Building [address] [place] [address], [address] [place] [address] 1. You can alternate ibuprofen and Tylenol as directed for pain and discomfort. 2. Follow-up with the general surgeon as discussed. Call the number to set up an appointment which has been provided above for you. 3. Return to the ED as needed and as discussed. Follow up with your primary care provider as discussed. - My Orders Last 24 Hours: My Active Orders 12/23/18 14:36 Hemoccult [Fecal Occult Blood Collection] [RC] ASDIRECTED 12/23/18 14:48 EKG Documentation Completion [RC] STAT Chest 1V Frontal [CR] Stat 12/23/18 14:55 CULTURE URINE [RM] Stat - Assessment/Plan Last 24 Hours: My Active Orders 12/23/18 14:36 Hemoccult [Fecal Occult Blood Collection] [RC] ASDIRECTED 12/23/18 14:48 EKG Documentation Completion [RC] STAT Chest 1V Frontal [CR] Stat 12/23/18 14:55 CULTURE URINE [RM] Stat
[2018-12-23] MEDS ORDERED: Sodium Chloride 0.9% 20 ML ONE (16:25)
--- NOTE | 2018-12-23 16:52 | CT ---
INDICATION: Left sided abdominal pain TECHNIQUE: CT Abdomen and pelvis with i.v. contrast. Coronal and sagittal reformats were obtained. CONTRAST: 100 mL Isovue 370 COMPARISON: None FINDINGS: Lower chest: There is a 7 mm round nodule in the right lower lobe. Liver: There is a 1.8 cm cyst in the posterior dome of the liver. Mild fatty infiltration of the liver is noted. Spleen: Unremarkable. Pancreas: Unremarkable. Gallbladder: Unremarkable. Kidney: Small cortical renal cysts present bilaterally measuring up to 1.5 cm (which has density of 15 HU). There is a punctate 1 mm stone seen in the upper pole of the left kidney. Adrenal: Unremarkable. Bowel: The small bowel loops in the left upper quadrant are mildly dilated measuring 4 cm in diameter and difficult to evaluate due to motion artifact. The appendix is normal in appearance and size. Vascular: Unremarkable. Lymph: Unremarkable. Peritoneum: Unremarkable. No pneumoperitoneum is seen. No significant ascites is noted. Pelvis: Unremarkable. Soft tissue: Unremarkable. Bone: Unremarkable for age. IMPRESSIONS: 1. There is a 7 mm round nodule in the right lower lobe. Initial followup chest CT in 6-12 months and subsequent followup at 18-24 months is advised in accordance with the 2017 Revised Fleischner Society Recommendations. 2. The small bowel loops in the left upper quadrant are mildly dilated measuring 4 cm in diameter and difficult to evaluate due to motion artifact. Findings are likely due to peristalsis but follow-up radiographs may be helpful to exclude the less likely possibility of early small-bowel obstruction. Dictated by Baldev Chadwick MD @ 12/23/2018 4:52:04 PM Please note that all CT scans at this facility use dose modulation, iterative reconstruction, and/or weight-based dosing when appropriate to reduce radiation dose to as low as reasonably achievable. Dictated by: Baldev Chadwick MD @ 12/23/2018 16:52:10 (Electronically Signed)
[2018-12-23] MEDS ORDERED: Iopamidol 755 MG/ML 500 ML Multipack Bottle IVPUSH STA (16:59)
[2018-12-23] MEDS ORDERED: Ketorolac 30 MG/ML SDV IVPUSH ONE (17:12)
[2018-12-23] MEDS ORDERED: Dicyclomine 10 MG Cap PO ONE (17:12)
--- NOTE | 2018-12-23 20:30 | CR ---
INDICATION: Chest pain COMPARISON: none TECHNIQUE: PA chest performed at 3:08 p.m. FINDINGS: The lungs are clear. There is no evidence of pneumothorax. The heart, mediastinum and pulmonary vessels are of normal size. There is no evidence of pleural fluid. IMPRESSION: Negative chest. Dictated by Clarence Aguero MD @ Dec 23 2018 3:57PM Signed by Dr. Clarence Aguero @ Dec 23 2018 8:28PM
== END 2018-12-23 17:40 | disposition home or self-care (01) ==
LOC: MW.ED 14:16
DX: R10.9 Unspecified abdominal pain (principal); R11.0 Nausea; F17.210 Nicotine dependence, cigarettes, uncomplicated
CPT/HCPCS: 36415; 71045; 74177; 80053; 80305; 81001; 83690; 84484; 85025; 87086; 93005; 96361; 96374; 96375; 99284; A9270; C9113; J1885; J2405; J7040; Q9967

== ENCOUNTER 2019-03-04 11:36 | Emergency (ER) | payer SELFPAY ==
[2019-03-04] MEDS ORDERED: Ketorolac 60 MG/2 ML SDV IM ONE (11:49)
--- NOTE | 2019-03-04 11:49 | EDM.PDOC ---
ED HPI GENERAL MEDICAL PROBLEM - General Chief Complaint: Lower Extremity Injury/Pain Stated Complaint: GOUT Time Seen by Provider: 03/04/19 11:49 Source of Information: Reports: Patient History Limitations: Reports: No Limitations - History of Present Illness INITIAL COMMENTS - FREE TEXT/NARRATIVE: HISTORY AND PHYSICAL: History of present illness: Patient is a 33-year-old male presents to the ED with complaint of gout flare. He reports history of acute gouty attacks in the right ankle every 5-6 months. He states he has taken colchicine for this in the past. He denies injury, fevers , chills. Review of systems: As per history of present illness and below otherwise all systems reviewed and negative. Past medical history: As per history of present illness and as reviewed below otherwise noncontributory. Surgical history: As per history of present illness and as reviewed below otherwise noncontributory. Social history: No reported history of drug or alcohol abuse. Family history: As per history of present illness and as reviewed below otherwise noncontributory. Physical exam: General: Patient sitting comfortably in no acute distress and nontoxic appearing HEENT: Atraumatic, normocephalic, pupils reactive, negative for conjunctival pallor or scleral icterus, mucous membranes moist, throat clear, neck supple, nontender, trachea midline. No meningeal signs. Lungs: Clear to auscultation, breath sounds equal bilaterally, chest nontender. Heart: S1S2, regular, negative for clicks, rubs, or overt murmur. Abdomen: Soft, nondistended, nontender. Negative for masses or hepatosplenomegaly. Negative for costovertebral tenderness. No rigidity, rebound , guarding. Pelvis: Stable nontender. Genitourinary: Deferred. Rectal: Deferred. Extremities: Right ankle is erythematous and warm to touch. Atraumatic, negative for cords or calf pain. Neurovascular unremarkable. Neuro: Awake, alert, oriented. Cranial nerves II through XII unremarkable. Cerebellum unremarkable. Motor and sensory unremarkable throughout. Exam nonfocal. Notes: Diagnostics: Declines imaging or labs Therapeutics: Toradol 60mg IM Prescriptions: Colchicine Impression: Acute gout attack Plan: Take medication as instructed Follow up with primary care provider Return to ED as needed as discussed Definitive disposition and diagnosis as appropriate pending reevaluation and review of above. right foot/ankle Pain Score (Numeric/FACES): 8 - Related Data Allergies Allergy/AdvReac Type Severity Reaction Status Date / Time hay Allergy Other Uncoded 03/04/19 11:46 Home Meds: Home Meds Colchicine 0.6 mg PO BID #10 capsule 03/04/19 [Rx] Past Medical History - Past Health History Medical/Surgical History: Denies Medical/Surgical History HEENT History: Reports: None Cardiovascular History: Reports: None Respiratory History: Reports: None Gastrointestinal History: Reports: None Genitourinary History: Reports: None Musculoskeletal History: Reports: None Neurological History: Reports: None Psychiatric History: Reports: None Endocrine/Metabolic History: Reports: None Hematologic History: Reports: None Immunologic History: Reports: None Oncologic (Cancer) History: Reports: None Dermatologic History: Reports: None - Infectious Disease History Infectious Disease History: Reports: Chicken Pox - Past Surgical History Head Surgeries/Procedures: Reports: None HEENT Surgical History: Reports: Adenoidectomy, Tonsillectomy, Other (See Below) Other HEENT Surgeries/Procedures: throat surgery Social & Family History - Family History Family Medical History: Noncontributory - Caffeine Use Caffeine Use: Reports: Coffee, Energy Drinks, Soda, Tea Review of Systems - Review of Systems Review Of Systems: ROS reveals no pertinent complaints other than HPI. ED EXAM, GENERAL - Physical Exam Exam: See Below (see dictation) Course - Vital Signs Last Recorded V/S: Last Vital Signs Temp 97.8 F 03/04/19 11:44 Pulse 101 H 03/04/19 12:22 Resp 18 03/04/19 12:22 BP 149/103 H 03/04/19 12:22 Pulse Ox 97 03/04/19 12:22 - Orders/Labs/Meds Meds: Medications Discontinued Medications Generic Name Dose Route Start Last Admin Trade Name Freq PRN Reason Stop Dose Admin Ketorolac Tromethamine 60 mg 03/04/19 11:49 03/04/19 11:57 Toradol IM 03/04/19 11:50 60 mg ONETIME ONE Administration Departure - Departure Time of Disposition: 11:51 Disposition: Home, Self-Care 01 Condition: Good Clinical Impression: Acute gout Qualifiers: Gout site: foot Gout etiology: unspecified cause Laterality: right Qualified Code(s): M10.9 - Gout, unspecified - Discharge Information Prescriptions: Colchicine 0.6 mg PO BID #10 capsule Instructions: Gout, [id number] Referrals: PCP,None [Primary Care Provider] - Forms: ED Department Discharge Additional Instructions: The following information is given to patients seen in the emergency department who are being discharged to home. This information is to outline your options for follow-up care. We provide all patients seen in our emergency department with a follow-up referral. The need for follow-up, as well as the timing and circumstances, are variable depending upon the specifics of your emergency department visit. If you don't have a primary care physician on staff, we will provide you with a referral. We always advise you to contact your personal physician following an emergency department visit to inform them of the circumstance of the visit and for follow-up with them and/or the need for any referrals to a consulting specialist. The emergency department will also refer you to a specialist when appropriate. This referral assures that you have the opportunity for follow-up care with a specialist. All of these measure are taken in an effort to provide you with optimal care, which includes your follow-up. Under all circumstances we always encourage you to contact your private physician who remains a resource for coordinating your care. When calling for follow-up care, please make the office aware that this follow-up is from your recent emergency room visit. If for any reason you are refused follow-up, please contact the [facility] Emergency Department at and asked to speak to the emergency department charge nurse. [facility] [address] [place] [id number] [facility] [address] [place] [id number] Take medication as instructed Follow up with primary care provider return to ED as needed as discussed
== END 2019-03-04 12:23 | disposition home or self-care (01) ==
LOC: MW.ED 11:36
DX: M10.9 Gout, unspecified (principal); Z91.048 Other nonmedicinal substance allergy status
CPT/HCPCS: 96372; 99283; J1885

== ENCOUNTER 2019-03-13 09:03 | Emergency (ER) | payer SELFPAY ==
--- NOTE | 2019-03-13 09:59 | EDM.PDOC ---
ED HPI GENERAL MEDICAL PROBLEM - General Chief Complaint: Lower Extremity Injury/Pain Stated Complaint: FOOT PAIN Time Seen by Provider: 03/13/19 09:07 Source of Information: Reports: Patient History Limitations: Reports: No Limitations - History of Present Illness INITIAL COMMENTS - FREE TEXT/NARRATIVE: History of present illness: []Patient stepped off his porch 2 days ago with sudden pain in his foot that worsened the next day with increased swelling.patient went to work yesterday and had to leave early due to insed swelling and pain. Review of systems: As per history of present illness and below otherwise all systems reviewed and negative. Past medical history: As per history of present illness and as reviewed below otherwise noncontributory. Surgical history: As per history of present illness and as reviewed below otherwise noncontributory. Social history: No reported history of drug or alcohol abuse. Family history: As per history of present illness and as reviewed below otherwise noncontributory. Physical exam: General: Well developed, well nourished in NAD HEENT: Atraumatic, normocephalic, pupils reactive, negative for conjunctival pallor or scleral icterus, mucous membranes moist, throat clear, neck supple, nontender, trachea midline. Lungs: Clear to auscultation, breath sounds equal bilaterally, chest nontender. Heart: S1S2, regular, negative for clicks, rubs, or JVD. Abdomen: NABS, Soft, nondistended, nontender. Negative for masses or hepatosplenomegaly. Negative for costovertebral tenderness. Pelvis: Stable nontender. Genitourinary: Deferred. Rectal: Deferred. Extremities: Left foot swollen and tender to palpation over 5th metarsal, distal pulses palpable, moves toes, sensation intact. negative for cords or calf pain. Neurovascular unremarkable. Neuro: Awake, alert, oriented. Cranial nerves II through XII unremarkable. Cerebellum unremarkable. Motor and sensory unremarkable throughout. Exam nonfocal. Skin:warm and dry Diagnostics: x-ray left ankle and left foot shows no acute fractures Therapeutics: Motrin for pain, boot splint ED Course: stable Impression: Left foot sprain Prescriptions: diclofenac Plan: Take meds as directed, follow up with your primary care physician, return to ER if symptoms worsen or change. Definitive disposition and diagnosis as appropriate pending reevaluation and review of above. left foot Pain Score (Numeric/FACES): 10 - Related Data Allergies Allergy/AdvReac Type Severity Reaction Status Date / Time hay Allergy Other Uncoded 03/13/19 09:31 Home Meds: Home Meds Diclofenac Sodium [Voltaren] 75 mg PO BIDMEALS PRN #20 tab.cr 03/13/19 [Rx] Past Medical History - Past Health History Medical/Surgical History: Denies Medical/Surgical History HEENT History: Reports: None Cardiovascular History: Reports: None Respiratory History: Reports: None Gastrointestinal History: Reports: None Genitourinary History: Reports: None Musculoskeletal History: Reports: None Neurological History: Reports: None Psychiatric History: Reports: None Endocrine/Metabolic History: Reports: None Hematologic History: Reports: None Immunologic History: Reports: None Oncologic (Cancer) History: Reports: None Dermatologic History: Reports: None - Infectious Disease History Infectious Disease History: Reports: Chicken Pox - Past Surgical History Head Surgeries/Procedures: Reports: None HEENT Surgical History: Reports: Adenoidectomy, Tonsillectomy, Other (See Below) Other HEENT Surgeries/Procedures: throat surgery Social & Family History - Family History Family Medical History: Noncontributory - Tobacco Use Smoking Status *Q: Current Every Day Smoker Years of Tobacco use: 20 Packs/Tins Daily: 1 - Caffeine Use Caffeine Use: Reports: Coffee, Energy Drinks, Soda, Tea - Recreational Drug Use Recreational Drug Use: No Review of Systems - Review of Systems Review Of Systems: See Below ED EXAM, GENERAL - Physical Exam Exam: See Below Course - Vital Signs Last Recorded V/S: Last Vital Signs Temp 97.2 F 03/13/19 10:54 Pulse 95 03/13/19 10:54 Resp 15 03/13/19 10:54 BP 166/108 H 03/13/19 10:54 Pulse Ox 98 03/13/19 10:54 - Orders/Labs/Meds Meds: Medications Discontinued Medications Generic Name Dose Route Start Last Admin Trade Name Freq PRN Reason Stop Dose Admin Ibuprofen 800 mg 03/13/19 10:10 03/13/19 10:24 Motrin PO 03/13/19 10:11 800 mg ONETIME ONE Administration Departure - Departure Time of Disposition: 10:43 Disposition: Home, Self-Care 01 Condition: Good Clinical Impression: Sprain of foot, left Qualifiers: Encounter type: initial encounter Qualified Code(s): S93.602A - Unspecified sprain of left foot, initial encounter - Discharge Information *PRESCRIPTION DRUG MONITORING PROGRAM REVIEWED*: No *COPY OF PRESCRIPTION DRUG MONITORING REPORT IN PATIENT DIEUDONNE: No Prescriptions: Diclofenac Sodium [Voltaren] 75 mg PO BIDMEALS PRN #20 tab.cr PRN Reason: Pain Instructions: Ankle Sprain, [id number], Diclofenac sodium enteric-coated tablets Referrals: PCP,None [Primary Care Provider] - Forms: ED Department Discharge Additional Instructions: The following information is given to patients seen in the emergency department who are being discharged to home. This information is to outline your options for follow-up care. We provide all patients seen in our emergency department with a follow-up referral. The need for follow-up, as well as the timing and circumstances, are variable depending upon the specifics of your emergency department visit. If you don't have a primary care physician on staff, we will provide you with a referral. We always advise you to contact your personal physician following an emergency department visit to inform them of the circumstance of the visit and for follow-up with them and/or the need for any referrals to a consulting specialist. The emergency department will also refer you to a specialist when appropriate. This referral assures that you have the opportunity for follow-up care with a specialist. All of these measure are taken in an effort to provide you with optimal care, which includes your follow-up. Under all circumstances we always encourage you to contact your private physician who remains a resource for coordinating your care. When calling for follow-up care, please make the office aware that this follow-up is from your recent emergency room visit. If for any reason you are refused follow-up, please contact the [facility] Emergency Department at and asked to speak to the emergency department charge nurse. Take meds as directed, follow up with your primary care physician, return to ER if symptoms worsen or change. [facility] [address] [place] [id number]
[2019-03-13] MEDS ORDERED: Ibuprofen 800 MG Tab PO ONE (10:10)
--- NOTE | 2019-03-13 10:23 | CR ---
INDICATION: Pain. COMPARISON: 10/07/2017. TECHNIQUE: Three views of the left ankle. FINDINGS: Small distal fibular spur formation is unchanged from prior examination. Talar dome and tibial plafond are intact. Joint spaces are maintained. No acute fracture or dislocation. IMPRESSION: No acute osseous abnormality. Dictated by Manny Diaz MD @ Mar 13 2019 10:19AM Signed by Dr. Manny Diaz @ Mar 13 2019 10:23AM
--- NOTE | 2019-03-13 10:26 | CR ---
INDICATION: Pain. COMPARISON: 10/07/2017. TECHNIQUE: Two views of the left foot. FINDINGS: Mild 1st MTP joint space narrowing, with small adjacent ossicle, unchanged from prior examination. Posttraumatic deformity of the 2nd metatarsal head is unchanged from prior. No acute fracture is identified. Small os peroneum is again noted. Mild soft tissue swelling. IMPRESSION: Mild soft tissue swelling. No acute osseous abnormality. Additional stable findings as above. Dictated by Manny Diaz MD @ Mar 13 2019 10:23AM Signed by Dr. Manny Diaz @ Mar 13 2019 10:24AM
== END 2019-03-13 10:55 | disposition home or self-care (01) ==
LOC: MW.ED 09:03
DX: S93.602A Unspecified sprain of left foot, initial encounter (principal); F17.210 Nicotine dependence, cigarettes, uncomplicated; Z91.09 Other allergy status, other than to drugs and biological substances; X50.9XXA Other and unspecified overexertion or strenuous movements or postures, initial encounter; Y92.89 Other specified places as the place of occurrence of the external cause
CPT/HCPCS: 73610; 73620; 99283; A9270